=== PATIENT | female | born 1940 | race Caucasian/White ===

== ENCOUNTER 2017-09-29 13:00 | Inpatient (IN) ==
--- OUTSIDE RECORDS SUMMARY | 2017-09-29 16:21 | External Medical Summary | Encounter Summary ---
:1940 Author Organization [facility] Address [address] [place] [address] Phone Care Team Providers Name Role Phone Juma Mcgraw Referring Md Kalpana Isidro DO Primary Care Provider Reason for Referral Consult, Test & Treat Status Reason Specialty Diagnoses / Referred By Referred To Procedures Contact Contact New Request Specialty Cardiology Diagnoses Aortic valve stenosis, etiology of cardiac valve disease unspecified Juma Mcgraw Services Cassia Required [address] [place] [address] Reason for Visit Reason Comments Navigation Assessment /MS surgical evaluation Encounter Details Date Type Department Care Team Description 09/08/2017 Telephone [facility] Cardiology Janet Rinaldi Assessment [address] (/MS surgical Dennys G600 evaluation) [place] [address] Social History Tobacco Use Types Packs/Day Years Used Date Never Smoker Smokeless Tobacco: Never Used Alcohol Use Drinks/Week oz/Week Comments Yes Rare occasion Sex Assigned at Date Recorded Not on file as of this encounter Miscellaneous Notes Telephone Encounter - Vielka Rinaldi RN - 09/08/2017 2:12 PM POLYMERIZATION HELPER Formatting of this note may be different from the original. Cardiac Navigation Intake Assessment Document Patient Name: Tess Ramesh : 1940 Insurance: Payor: MEDICARE / Plan: MEDICARE PART A AND B / Product Type: Medicare / Primary contact for patient: Nicho Ramesh () [phone] Appointment Info:Future Appointments Date Time Provider Department Center 09/21/2017 11:30 AM [facility] Diagnosis & Reason for Visit: 2nd opinion, Aortic stenosis & mitral stenosis evaluation Physician Info: Referring Physician(Eye Glass Frame Polisher): Jaya Mcgraw MD Contact Name & Number: [phone] PCP: Kalpana Isidro Do Location of Films: Cath- [facility] DAISY- [place] Echo- Patient bringing disc History of Present Illness: 05/31/17 Echo Aortic valve: Mean Gradiant: 34 mmHg Valve Area: 1.51 cm2 Peak Velocity: 3.99 m/s Mitral Valve: Moderate annular calcification, mild to moderate regurgitation, up to moderate stenosis Tricuspid valve: mild regurgitation EF: 65% Diastolic Function: Grade 1 diastolic Add'l results per report 06/23/17 DAISY -Left atrial enlargement -Marked concentric LVH involving the septum -Subaortic valvular obstruction as manifested by turbulent flow and obliteration of the cavity at that level -Calcific severe aortic valve stenosis -Moderate calcified mitral stenosis -Mild to moderate mitral regurgitation -Mild aortic regurgitation -Normal EF 06/23/17 Cath -Normal coronary calcification -Severe aortic stenosis -Hyperdynamic LV, EF: 80% with obliteration of LV cavity size which is small caused by severe LVH -Moderate to severe mitral stenosis Add'l results per report 07/01/[address] Henriquez (CTS surgeon) Refer for TAVR evaluation due to surgical risk 07/13/[address] Lock and Ana María Segovia APRN (Valve clinic) If mitral stenosis not severe, will plan for TAVR If mitral stenosis is severe will refer back to Dr. Henriquez 07/23/17 Dobutamine Stress test -Stress ECG normal -At 20 mcg/kg/min the test shows severe aortic and mitral stenosis 07/29/[address] Henriquez (CTS surgeon) -High risk for AV dissociation with mitral valve replacement. Will continue medical treatment 09/02/[address] Lucien VELOZ Plan: Referral for 2nd opinion Medical history(Pertinent to valve workup) : Breast cancer (Masectomy only), Rheumatoid arthritis Surgery/Procedure history (Pertinent to valve workup) : Echo (results above), Cath, (results above),DAISY (results above), Dobutamine echo (results above) Reported heart failure symptoms: No current symptoms NEEDS Assessment: Social Work/Financial: No need identified Physical: Independent Communication: No needs identified Reviewed records with Mare Cunha APRN and Dr. Resendiz Plan: Office visit Comments: Spoke to Mrs. Ramesh. Updated with current plan. Updated with appointment information. in this encounter Plan of Treatment Scheduled Referrals Name Priority Associated Diagnoses Order Schedule AMB REFERRAL TO CARDIOVASCULAR Routine Aortic valve stenosis, Ordered: 09/08 SURGERY etiology of cardiac valve disease unspecified as of this encounter Visit Diagnoses Diagnosis Aortic valve stenosis, etiology of cardiac valve disease unspecified - Primary Mitral valve stenosis, unspecified etiology
--- OUTSIDE RECORDS SUMMARY | 2017-09-29 16:21 | External Medical Summary | Clinical Summary ---
:1940 Author Organization [facility] Address [address] [place] [address] Phone Care Team Providers Name Role Phone Juma Mcgraw Md Kalpana Isidro DO Primary Care Provider Source Comments Some departments are not documenting in the electronic medical record. If you do not see the information that you expected, contact Release of Information in the Health Information Management department at [phone] for further assistance in locating additional records.[facility] Allergies No Known Allergies Current Medications Prescription Sig. Disp. Refills Start Date End Date Status METOPROLOL/HYDROCHLOROTHI Take 1 tablet by Active AZIDE (METOPROLOL mouth daily. TA-HYDROCHLOROTHIAZ PO) Metoprolol 25mg-Hydrchlorothia zide 12.5mg aspirin EC 81 mg tablet Take 81 mg by mouth Active daily. Take with food. CALCIUM CARBONATE/VITAMIN Take 1 tablet by Active D3 (CALCIUM + D PO) mouth three times daily. cyclobenzaprine Take 10 mg by mouth Active (FLEXERIL) 10 mg tablet daily. MULTIVIT-MINERALS/FERROUS Take 1 tablet by Active FUM (MULTI VITAMIN PO) mouth daily. triamterene-hydrochloroth Take 1 tablet by Active iazide (MAXZIDE) 37.5-25 mouth every mg tablet morning. anastrozole (ARIMIDEX) 1 Take 1 mg by mouth Active mg tablet daily. traMADol (ULTRAM) 50 mg Take 50 mg by mouth Active tablet every 4-6 hours as needed for Pain. atorvastatin (LIPITOR) 40 Take 40 mg by mouth Active mg tablet daily. Active Problems Problem Noted Date Mitral stenosis Aortic stenosis Breast cancer (HCC) Pulmonary histoplasmosis (HCC) Obesity HTN (hypertension) Dyslipidemia Rheumatoid arthritis (HCC) S/P mastectomy, right Encounters Date Type Specialty Care Team Description 09/21/2017 Office Visit Cardiothoracic Surgery Martín, Mitral valve stenosis, unspecified etiology (Primary Dx); Brandon Whaley MD Aortic valve stenosis, etiology of cardiac valve disease unspecified; Malignant neoplasm of right female breast, unspecified estrogen receptor status, unspecified site of breast (HCC); Pulmonary histoplasmosis (HCC); Class 1 obesity due to excess calories with body mass index (BMI) of 34.0 to 34.9 in adult, unspecified whether serious comorbidity present 09/08/2017 Telephone Cardiology Gentry, Janet Assessment [address] (/MS surgical evaluation) from Last 3 Months Family History Medical History Relation Name Comments Heart Attack Father Stroke Mother Relation Name Status Comments Father (Age 60) Mother (Age 67) Social History Tobacco Use Types Packs/Day Years Used Date Never Smoker Smokeless Tobacco: Never Used Alcohol Use Drinks/Week oz/Week Comments No Rare occasion Sex Assigned at Date Recorded Not on file Last Filed Vital Signs Vital Sign Reading Time Taken Blood Pressure 122/82 09/21/2017 10:40 AM GANG SAWYER Pulse 63 09/21/2017 10:40 AM GANG SAWYER Temperature - - Respiratory Rate - - Oxygen Saturation 92% 09/21/2017 10:40 AM GANG SAWYER Inhaled Oxygen Concentration - - Weight 91 kg (200 lb 11.2 oz) 09/21/2017 10:40 AM GANG SAWYER Height 162.6 cm (5' 4") 09/21/2017 10:40 AM GANG SAWYER Body Mass Index 34.45 09/21/2017 10:40 AM GANG SAWYER Plan of Treatment Health Maintenance Due Date Last Done Comments PHYSICAL (COMPREHENSIVE) EXAM 1945 PERTUSSIS VACCINE 1949 TETANUS VACCINE 1955 SHINGLES VACCINE 1998 OSTEOPOROSIS SCREENING 2003 PREVNAR/PNEUMOVAX (#1) 2003 INFLUENZA VACCINE 03/16/2017
--- OUTSIDE RECORDS SUMMARY | 2017-09-29 16:21 | External Medical Summary | Encounter Summary ---
:1940 Author Organization [facility] Address [address] [place] [address] Phone Care Team Providers Name Role Phone Juma Mcgraw Referring Md Kalpana Isidro DO Primary Care Provider Reason for Visit Reason Comments Cardiac Eval /MS eval New Patient ref Dr Jaya Mcgraw Consult, Test & Treat Status Reason Specialty Diagnoses / Referred By Referred To Procedures Contact Contact New Request Specialty Cardiology Diagnoses Aortic valve stenosis, etiology of cardiac valve disease unspecified Juma Mcgraw Required [address] [place] [address] Encounter Details Date Type Department Care Team Description 09/21/2017 Office Visit [facility], Mitral valve stenosis, unspecified etiology (Primary Dx); & Cardiovascular Brandon Whaley MD Aortic valve stenosis, etiology of cardiac valve disease unspecified; [facility] [address] Malignant neoplasm of right female breast, unspecified estrogen receptor status, unspecified site of breast (HCC); [address] [place] [address] Pulmonary histoplasmosis (HCC); [place] [address] [place] Class 1 obesity due to excess calories with body mass index ( BMI) of 34.0 to 34.9 in adult, unspecified whether serious comorbidity present [phone] [address] [phone] Social History Tobacco Use Types Packs/Day Years Used Date Never Smoker Smokeless Tobacco: Never Used Alcohol Use Drinks/Week oz/Week Comments No Rare occasion Sex Assigned at Date Recorded Not on file as of this encounter Last Filed Vital Signs Vital Sign Reading Time Taken Blood Pressure 122/82 09/21/2017 10:40 AM EMBEDDED DEVELOPER Pulse 63 09/21/2017 10:40 AM EMBEDDED DEVELOPER Temperature - - Respiratory Rate - - Oxygen Saturation 92% 09/21/2017 10:40 AM EMBEDDED DEVELOPER Inhaled Oxygen Concentration - - Weight 91 kg (200 lb 11.2 oz) 09/21/2017 10:40 AM EMBEDDED DEVELOPER Height 162.6 cm (5' 4") 09/21/2017 10:40 AM EMBEDDED DEVELOPER Body Mass Index 34.45 09/21/2017 10:40 AM EMBEDDED DEVELOPER in this encounter Progress Notes Brandon Resendiz MD - 09/21/2017 11:30 AM CSTFormatting of this note may be different from the original. Date of Service: 09/21/2017 Subjective: Tess Ramesh is a 77 y.o. female. History of Present Illness We had the pleasure of seeing your patient, Tess Ramesh. As you know Tess Ramesh is a 77 y.o. female who you have been following for a long history of cardiac murmur. She had a recent echocardiogram in May of this year that showed a worsening aortic valve stenosis as well as significant mitral valve stenosis. She is here for a second surgical opinion regarding aortic and mitral valve replacement. Her history is significant for breast cancer status post right mastectomy approximately 1year ago and currently in remission. She also has a history of histoplasmosis lung infection approximately 5 years ago that was treated. She has chronic active arthritis, hypertension, hyperlipidemia, obesity, acute on chronic heart failure with preserved EF NYHA class II-III. As part of your workup she had an echocardiogram in May 2017 in [place], [place] that showed grade1 diastolic dysfunction and normal EF of 65%, moderate LV hypertrophy, mild LVOT obstruction, moderate to severe left atrial enlargement, moderate mitral annular calcification, mild to moderate mitral valve regurgitation with moderate mitral valve stenosis, moderate to severe aortic valve stenosis, and mild tricuspid valve regurgitation. Her mean aortic valve gradient was 35 mmHg with a valve area of 1.41 cm and a peak velocity of 3.99 m/s. Her mitral valve area was 1.9 cm. Of note she did have a normal size aortic root. On 06/23/2017 in [facility] she had a DAISY performed that showed an enlarged left atrium, concentric LVH, a particularly thick septum seeming to protrude into the subvalvular area causing obliteration, normal EF, moderate calcification of the aortic valve, valve area measuring 0.7 cm, mitral valve had heavy calcification of the posterior annulus extending to the posterior leaflet which appeared predominantly fixed, a thickened anterior leaflet was mildly calcified and sclerotic and appeared tethered consistent with mitral stenosis, normal tricuspid valve structure and excursion. That same day she had a heart catheterization that showed no significant coronary artery disease. A couple weeks later she had a carotid duplex study that was negative for occlusive disease. In July of this year she did have a dobutamine echo at [facility] that showed normal functional capacity with no chest pain during the stress with no stress arrhythmias or conduction abnormalities the EF was again 55-65% the mean aortic valve gradient was 45 mmHg the mean mitral valve gradient was 11.06 mmHg at peak stress. She was evaluated [place] surgeon Dr. Henriquez who discussed surgical options with her. The primary concern with surgical intervention was for heavily calcified mitral valve and she was thoughtto be at high risk of A-V dissociation with mitral valve replacement. Because of this she was referred to [facility] for possible TAVR intervention on her aortic valve. During that consultation the discussed again the uncertainty of her mitral valve stenosis. We felt that if she did not ultimately have severe mitral stenosis they would plan for a TAVR operation. However if she does have significant mitral stenosis recommendations would be to send her back to Dr. Henriquez for further surgical evaluation. She is here today for a second surgical opinion regarding her aortic and mitral valves. Overall her symptoms have included worsening shortness of breath and fatigue in general especially with activity that she feels has gradually worsened over the last 3 years. She does note some orthostatic dizziness and is always careful with this. She denies any chest pain, palpitations, syncope, orthopnea, paroxysmal nocturnal dyspnea, lower extremity edema, chills, fever, myalgias, productive cough and sweats. She denies any history of heart attack, stroke, mini stroke, seizures, blood clots, or blood clotting disorders. As noted above she has had a prior right mastectomy without reconstruction and both knees replaced. She did have a total abdominal hysterectomy after a very large benign mass was removed. This was all reviewed today by Dr. Brandon Resendiz and was discussed at length with Tess Ramesh. Review of Systems Constitution: Positive for malaise/fatigue. HENT: Negative. Eyes: Negative. Cardiovascular: Positive for dyspnea on exertion. Respiratory: Negative. Endocrine: Negative. Hematologic/Lymphatic: Negative. Skin: Negative. Musculoskeletal: Positive for arthritis and joint pain. Gastrointestinal: Negative. Genitourinary: Negative. Neurological: Positive for loss of balance. Psychiatric/Behavioral: Negative. Allergic/Immunologic: Negative. Past Medical History: Diagnosis Date Aortic stenosis Breast cancer (HCC) Dyslipidemia HTN (hypertension) Mitral stenosis Obesity Pulmonary histoplasmosis (HCC) Rheumatoid arthritis (HCC) S/P mastectomy, right Past Surgical History: Procedure Laterality Date HEART CATHETERIZATION 06/23/2017 CHOLECYSTECTOMY COLONOSCOPY KNEE ARTHROSCOPY KNEE REPLACEMENT Bilateral MASTECTOMY Right DESTINY AND BSO Social History Social History Marital status: Unknown Spouse name: N/A Number of children: N/A Years of education: N/A Social History Main Topics Smoking status: Never Smoker Smokeless tobacco: Never Used Alcohol use No Comment: Rare occasion Drug use: No Sexual activity: Not on file Other Topics Concern Not on file Social History Narrative No narrative on file Family History Problem Relation Age of Onset Stroke Mother Heart Attack Father Objective: anastrozole (ARIMIDEX) 1 mg tablet Take 1 mg by mouth daily. aspirin EC 81 mg tablet Take 81 mg by mouth daily. Take with food. atorvastatin (LIPITOR) 40 mg tablet Take 40 mg by mouth daily. CALCIUM CARBONATE/VITAMIN D3 (CALCIUM + D PO) Take 1 tablet by mouth three times daily. cyclobenzaprine (FLEXERIL) 10 mg tablet Take 10 mg by mouth daily. METOPROLOL/HYDROCHLOROTHIAZIDE (METOPROLOL TA-HYDROCHLOROTHIAZ PO) Take 1 tablet by mouth daily.Metoprolol 25mg-Hydrchlorothiazide 12.5mg MULTIVIT-MINERALS/FERROUS FUM (MULTI VITAMIN PO) Take 1 tablet by mouth daily. traMADol (ULTRAM) 50 mg tablet Take 50 mg by mouth every 4-6 hours as needed for Pain. triamterene-hydrochlorothiazide (MAXZIDE) 37.5-25 mg tablet Take 1 tablet by mouth every morning. Vitals: 09/21/17 1040 BP: 122/82 Pulse: 63 SpO2: 92% Weight: 91 kg (200 lb 11.2 oz) Height: 1.626 m (5' 4") Body mass index is 34.45 kg/m. Physical Exam Constitutional: She is oriented to person, place, and time. She appears well- developed and well-nourished. obese HENT: Head: Normocephalic. Cardiovascular: Normal rate and regular rhythm. Murmur (3-4/6 systolic ) heard. Pulmonary/Chest: Effort normal and breath sounds normal. Abdominal: Soft. Bowel sounds are normal. Musculoskeletal: Normal range of motion. She exhibits no edema. Compression sock on right arm for lymphedema Neurological: She is alert and oriented to person, place, and time. Skin: Skin is warm and dry. Psychiatric: She has a normal mood and affect. Her behavior is normal. Judgment and thought content normal. Preliminary STS today: Procedure: AV Replacement Risk of Mortality: 2.883% Morbidity or Mortality: 14.037% Long Length of Stay: 5.826% Short Length of Stay: 34.264% Permanent Stroke: 1.971% Prolonged Ventilation: 9.352% DSW Infection: 0.305% Renal Failure: 3.215% Reoperation: 5.906% HAS-BLED:1 Assessment: 1. Mitral valve stenosis, unspecified etiology 2. Aortic valve stenosis, etiology of cardiac valve disease unspecified 3. Malignant neoplasm of right female breast, unspecified estrogen receptor status, unspecified siteof breast (HCC) 4. Pulmonary histoplasmosis (HCC) 5. Class 1 obesity due to excess calories with body mass index (BMI) of 34.0 to 34.9 in adult, unspecified whether serious comorbidity present 6. Hypertension, unspecified type 7. Dyslipidemia 8. Rheumatoid arthritis, involving unspecified site, unspecified rheumatoid factor presence (HCC) 9. S/P mastectomy, right After a long discussion about risks and benefits of surgical intervention of either valve, she decided she would like to wait and see how her symptoms develop and hold off on surgery for now. Lexi Lynn APRN [facility] 09/21/2017 11:49 AM Assessment and Plan: I had the pleasure of seeing Tess Ramesh in the office in consultation concerning her aortic stenosis. As you know, this 77-year-old female has had a known murmur and been followed for aortic stenosis. She has undergone an echocardiogram, which demonstrates preserved LV function. She has someLV hypertrophy. Her aortic valve is very heavily calcified with very restricted leaflet motion. Her valve area, however, is over 1.4 cm. Her gradient is approximately 35 mmHg. Also of note is the fact that her mitral valve apparatus is heavily calcified. She has very restricted leaflet motion. She has at least moderate, if not even severe mitral stenosis. She underwent a cardiac cath. This demonstrates normal coronaries, but more importantly demonstrates that her mitral apparatus is diffusely and heavily calcified. I had a long discussion today in the office with she and her family. She states that her symptoms are primarily fatigue, which is actually very mild. She states her daily activities are not limited.She denies any syncopal episodes. She has had no chest pain. She said she sleeps without any difficulties. I am concerned that given the amount of mitral involvement that she would more likely benefit from aortic and mitral valve replacement. If, in fact, she has severe mitral stenosis and aortic valve replacement, we will probably not be of significant benefit to her, especially given the fact that her aortic valve area is actually reasonable at this time. With open mitral valve replacement, I think her risks are extremely high, especially for an atrioventricular disruption given AL at the amount of mitral annular calcification. I have reviewed this in detail today with she and her family. They have had a similar discussion with the surgeon in their home town. I would agree with his assessment that her surgical risks are high. Given these findings, and given the fact she remains relatively asymptomatic, she would like to continue with medical therapy, which I think is reasonable. I have told him I will be happy to follow up with her again if she would like to return. Otherwise, we would continue medical therapy. 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
--- OUTSIDE RECORDS SUMMARY | 2017-09-29 16:21 | External Medical Summary | Continuity of Care Document ---
:1940 Author Organization [facility] Care Team Providers Name Role Phone [employer] Unavailable Unavailable Encounters Location Location Encounter Encounter Reason Attending ADM DC Status Source Details Type Number For Provider Date Date Visit O 09/21 Active The /2017 [facility] OUTPATIENT [id number] LUPILLO 09/21 Active The [facility]
--- OUTSIDE RECORDS SUMMARY | 2017-09-29 16:22 | External Medical Summary ---
:1940 Author Organization [facility] Address [address] [place] [address] Care Team Providers Name Role Phone REBECA Segovia, VIKASH, Ana María Unavailable Unavailable PROBLEMS Type Condition ICD9-CM Code GGL39-ME Code Onset Condition SNOMED Code Dates Status Problem Dyslipidemia E78.5 Active 880297079 Problem Aortic valve I35.0 Active 13050634 stenosis, etiology of cardiac valve disease unspecified Problem Mitral valve I05.0 Active 32987893 stenosis, unspecified etiology Problem Obesity, E66.9 Active 231727894 unspecified classification, unspecified obesity type, unspecified whether serious comorbidity present Problem Rheumatoid M06.9 Active 69997007 arthritis, involving unspecified site, unspecified rheumatoid factor presence Problem (HFpEF) heart I50.30 Active 01896744 failure with preserved ejection fraction Problem Hypertension, I10 Active 50354412 unspecified type ALLERGIES No Known Allergies ENCOUNTERS Encounter Location Date Diagnosis [facility] [address], Aortic valve stenosis, [facility] [place], [place] [id number] etiology of cardiac valve disease unspecified I35.0 ; Mitral valve stenosis, unspecified etiology I05.0 ; (HFpEF) heart failure with preserved ejection fraction I50.30 ; Hypertension, unspecified type I10 ; Obesity, unspecified classification, unspecified obesity type, unspecified whether serious comorbidity present E66.9 ; Rheumatoid arthritis, involving unspecified site, unspecified rheumatoid factor presence M06.9 ; Dyslipidemia E78.5 and Urinary tract infection without hematuria, site unspecified N39.0 IMMUNIZATIONS No Known Immunizations SOCIAL HISTORY Never Assessed 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 TAVR CONSULT FOR DR SULLY CAMPOS PLAN OF CARE VITAL SIGNS Temperature 97.4 degrees Fahrenheit 2017-07-13 Weight 202 lbs 2017-07-13 Height 65 in 2017-07-13 BMI 33.61 kg/m2 2017-07-13 Heart Rate 66 /min 2017-07-13 Blood pressure systolic 141 mm Hg 2017-07-13 Blood pressure diastolic 71 L mm Hg 2017-07-13 MEDICATIONS Medication Instructions Dosage Frequency Start End Duration Status Date Date Vitamin B Complex - Active Atorvastatin Orally Once a 1 tablet 24h Active Calcium 40 MG day Nexium 20 MG Orally Once a 1 capsule 24h Active day Calcium + D Active Metoprolol Tartrate Orally Twice a 1 tablet 12h Active 25 MG day with food Anastrozole 1 MG Orally Once a 1 tablet 24h Active day Multivitamin Adult Active - Triamterene-HCTZ Orally Once a 1 tablet 24h Active 37.5-25 MG day in the morning Tramadol 50 mg orally every one tab Active 4-6 hours prn pain Aspirin Adult Low Orally Once a 1 tablet 24h Active Dose 81 MG day Cyclobenzaprine HCl Active RESULTS No Results PROCEDURES No Known procedures INSTRUCTIONS MEDICATIONS ADMINISTERED No Known Medications MEDICAL (GENERAL) HISTORY Type Description Date Medical History SEVERE AORTIC STENOSIS Medical History MODERATE MITRAL STENOSIS Medical History HTN Medical History DYSLIPIDEMIA Medical History RHEUMATOID ARTHRITIS Medical History BREAST CA Medical History OBESITY Surgical History HEART CATHETERIZATION- [facility] 06/23/2017 Surgical History MASTECTOMY Surgical History KNEE arthroscopy Surgical History Colonoscopy
[2017-09-29 17:49] VITALS: BMI 33.2
[2017-09-29] MEDS ORDERED: GUAIFENESIN 200MG TABLET PO PRN (17:59)
[2017-09-29] MEDS ORDERED: QUETIAPINE 25 MG TABLET PO PRN (17:59)
[2017-09-29] MEDS ORDERED: ENOXAPARIN 40 MG/0.4 ML INJECTION SQ SCH (18:00)
[2017-09-29] MEDS ORDERED: MAGNESIUM OXIDE 400 MG TABLET PO SCH (21:00)
[2017-09-29] MEDS: ATORVASTATIN 40 MG TABLET PO SCH (21:16)
[2017-09-29] MEDS: CYCLOBENZAPRINE 10 MG TABLET PO SCH (21:16)
[2017-09-30] MEDS: PANTOPRAZOLE 20 MG TABLET PO SCH (09:17)
[2017-09-30] MEDS: CLOPIDOGREL 75 MG TABLET PO SCH (09:18)
[2017-09-30] MEDS: CETIRIZINE 10 MG TABLET PO SCH (09:18)
[2017-09-30] MEDS: TRIAMTERENE/HCTZ 37.5 MG-25 MG TABLET PO SCH (09:18)
[2017-09-30] MEDS: ASPIRIN 81 MG CHEWABLE TABLET PO SCH (09:18)
--- NOTE | 2017-09-30 10:25 | IRU 24Hr Post Admit Eval ---
24 Hr Post Admission Physical - Relevant Changes Relevant Changes: No Reviewed: I have reviewed the patient's information and concur with the finding and results of the pre-admission screen. Certification: I certify the patient for rehabilitation. - Patient Condition (1) CVA (cerebral vascular accident) Status: Acute Qualifiers: CVA mechanism: embolism Precerebral and cerebral artery: middle cerebral artery Laterality of affected vessel: left Qualified Code(s): I63.412 - Cerebral infarction due to embolism of left middle cerebral artery Code(s): I63.9 - Cerebral infarction, unspecified Classification: Present on IRF Admission, IRF Tx That Should Address Diagnosis, Diagnosis Requiring Medical Follow Up (2) Hypertension Status: Chronic Qualifiers: Hypertension type: essential hypertension Qualified Code(s): I10 - Essential (primary) hypertension Code(s): I10 - Essential (primary) hypertension Classification: Present on IRF Admission, IRF Tx That Should Address Diagnosis, Diagnosis Requiring Medical Follow Up (3) Mitral stenosis Status: Chronic Qualifiers: Cardiac valve disease etiology: etiology unspecified Qualified Code(s): I05.0 - Rheumatic mitral stenosis Code(s): I05.0 - Rheumatic mitral stenosis Classification: Present on IRF Admission, IRF Tx That Should Address Diagnosis, Diagnosis Requiring Medical Follow Up - Prior Functional Status Lives With: Spouse Residence Type: Apartment/Private Home Assitive Devices: Straight Cane Prior Functional Status: Indep. at home or school, Indep. w/ all home ADL, Indep. w/ IADL - Current Functional Status Current Level of Function: Patient is currently independent with eating but requires supervision for grooming, moderate assistance for bathing, lower body dressing and bed/chair/ wheelchair transfers. She requires supervision for upper body dressing. She requires total assistance for walking with a rolling walker 40 feet. She does tend to have loss of balance episodes with her gait. She is currently a high fall risk. In addition there has been memory loss since the stroke. She did undergo a swallow study which was reportedly normal. She does have at least moderate cognitive linguistic deficits. She has left sided neglect visually. Failed Alternative Therapy: Arrived from Acute Care Patient Requirements: The patient requires oversight by rehabilitation physician to manage their rehabilitation treatment plan and multidisciplinary approach to care that can only be provided in an IRF and requires a multidisciplinary approach to care, provided by professional PTs, OTs, STs, dieticians, RTs, rehabilitation nurses and is not available in lesser levels of care. Limitations Req: Mobility Impairment, ADL Impairment, Cognitive Impairment Therapy: The patient is to receive therapy at least 5 days a week. Plan of Care Comment: Physical therapy: 75 minutes 3 days weekly, 90 minutes 2 days weekly. Occupational therapy: 75 minutes 3 days weekly, 90 minutes 2 days weekly. Speech therapy: 30 minutes 3 days weekly - Complications/Comorbidities Impact on Functional Outcomes: The patient's stroke and cognitive deficits may negatively impact her functional outcome. Barriers to Discharge: Weakness, Balance, Comprehension - Plan to Avoid Complications Plan to Avoid Complications: The patient cannot receive this care in a lesser intensive setting such as [facility] or Outpatient Therapy due to the patient requiring the following : This complex patient requires a multidisciplinary approach with PT, OT and speech therapy. She is at risk for further neurologic deficits. She requires close 24 hour rehabilitation nursing monitoring of her neurologic status as well as requiring telemetry to rule out arrhythmia as an etiology of her stroke. Because of her medical complexity and requirement for multidisciplinary approach, medical supervision is required as well .
--- NOTE | 2017-09-30 11:42 | Consult Note ---
Consult Information - Data of Consult Consult date: 09/30/17 Requesting Physician: Ubaldo Claire MD Primary Care Provider: Kalpana Isidro DO Family Provider: Kalpana Isidro DO - Consult Narrative Reason for consult: Medical management HTN, CVA History of present illness: Tess is a pleasant 77 yr old female who resides independently at home with her in [facility]. She has been under the primary care of Dr Kalpana Isidro. On 09/24/17 at 1802. She was on the phone with her daughter and was confused. arrived home shortly thereafter. She was complaining of a significant frontal headache along with memory loss and left facial drooping. EMS was contacted patient was noted to be dragging her left leg. She was hypertensive with blood pressure 200/107. At that time she was transported directly to [facility] and evaluated for acute CVA. She did receive TPA at 6 that evening. She was admitted and followed by Neurology and cardiology while at [facility]. On 09/29, patient underwent a ADISY under the care of Dr. Jaya Mcgraw. DAISY revealed the EF of 60-65% with aortic valve thickening with moderate calcification. Mitral valve with moderate regurgitation. An MRI of the brain was performed on 09/25 that did reveal a acute ischemic area of the left centrum semiovale, no mass effect or hemorrhagic transformation. Patient was stabilized and accepted to [facility] IRU for ongoing PT/ OT for strengthening. Past Medical History Patient Stated Medical History Acute CVA-09/24/17 (received TPA) Hypertension Hypercholesterolemia Aortic valvular disease with calcification GERD/gastritis Constipation History of headaches History of right breast cancer Surgical History: [id number]. BSO- 2011. Vaginal Hyst- 1989's. R mastectomy. Lymphnode removal-. Bilateral knee replacements. appendectomy. cholecystectomy Family History Updates: Mother-coronary artery disease, CVA, at age 67. Father- of an MT at age 60. Brother had MT at age 66 - Social History Smoking status: Never smoker Substance use type: does not use Alcohol intake frequency: does not drink Housing: house Household members: spouse Current residence: Apartment/Private Home Social history: Patient resides independently with her at home in [place], [place]. Primary care provider, Dr. Kalpana Isidro Provider Relations Rep, Dr. Mcgraw Review of Systems All systems PM: 10-point ROS was reviewed, no additional remarkable complaints except - EENMT Eyes: Present: blurry vision (left eye) - Psychiatric Psychiatric Comments: Emotional, "Frustrated" Medications Home Medications Medication Instructions Recorded Confirmed Type Lipitor (atorvastatin) 40 mg tablet 40 mg PO HS tab 06/18/17 09/29/17 History Lopressor (metoprolol tartrate) 50 25 mg PO BID 06/18/17 09/29/17 History mg tablet Nexium (Esomeprazole) 20 mg 20 mg PO ACB cap 06/18/17 09/29/17 History capsule,delayed release Acetaminophen [Tylenol] 650 mg PO PRN PRN 06/23/17 09/29/17 History Aspirin Chewable [ASA] 81 mg PO DAILY 09/29/17 09/29/17 History Cetirizine [Zyrtec] 1 tab PO DAILY 09/29/17 09/29/17 History Clopidogrel [Plavix] 1 tab PO DAILY 09/29/17 09/29/17 History Cyclobenzaprine [Flexeril] 1 tab PO HS 09/29/17 09/29/17 History Enoxaparin [Lovenox] 40 mg SQ Q24HR 09/29/17 09/29/17 History Guaifenesin [Mucinex] 200 mg PO Q6HPRN PRN 09/29/17 09/29/17 History Magnesium Oxide [Magox] 400 mg PO TID 09/29/17 09/29/17 History Quetiapine [Seroquel] 12.5 mg PO Q6HR PRN 09/29/17 09/29/17 History Triamterene/Hydrochlorothiazid 1 each PO DAILY 09/29/17 09/29/17 History [Maxzide 37.5 mg-25 mg Tablet] Allergies Allergy/AdvReac Type Severity Reaction Status Date / Time No Known Allergies Allergy Verified 09/29/17 18:14 Exam Vital Signs: Temperature 98.5 F 09/30/17 08:00 Pulse Rate 99 09/30/17 08:00 Respiratory Rate 18 09/30/17 08:00 Blood Pressure 142/92 H 09/30/17 08:00 Pulse Oximetry 91 09/30/17 08:00 Height/Weight/BMI: Height 1.64 m Weight 89.2 kg Body Mass Index 33.2 - Constitutional Present: no acute distress, well nourished, well developed - Routine HEENT Exam Eye: Present: EOMI ENT: Present: mucous membranes moist, dentition normal - Routine Respiratory Exam Present: CTA bilaterally. Absent: wheezes - Routine Cardiovascular Exam Present: RRR, S1, S2, murmur - Routine Abdominal Exam Present: soft, normoactive bowel sounds, non distended. Absent: tenderness - Routine Extremities Exam Present: no edema - Routine Skin Exam Present: intact, dry, warm - Routine Neurological Exam Present: alert, oriented X3, CN II-XII intact, moving all extremities - Routine Psychiatric Exam Present: cooperative, depressed Comments: emotional during examination Results - Labs CBC & Chem 7: 09/30/17 04:55 09/30/17 04:56 Assessment and Plan (1) CVA (cerebral vascular accident) Current visit: Yes Status: Acute Assessment and Plan: Impression Acute CVA- 09/24/17 Received TPA Left eye blurriness Aortic valve calcification HTN Hypercholesterolemia GERD Hx Breast Cancer Plan Agree with admission to IRU under the care of Dr. Claire for ongoing therapy and strengthening. Patient is quite emotional during examination and reports that she is frustrated with the acute events. It is her hope to return home independently with her . Discussed potential depression and offered initiation of anti-depression medication if needed. Monitor blood pressure, continue on Maxide and Lopressor Protonix chronically for GI protection. Given history of GERD and gastritis Continue on ASA ,Plavix, and Lipitor given recent CVA Urged patient to utilize her routine glasses. She does complain of some left eye blurriness, however, has not been using her normal bifocals. Lovenox SQ daily for PPX Will need to monitor patient for any worsening signs of depression or anxiety. Patient may benefit from initiation of an antidepressant medication given significant life change. Seroquel is available as needed. Will follow routine labs. Encourage work with PT and OT for ongoing strengthening Hospitalist service will continue to follow patient medically manage her existing comorbidities during her stay in the rehabilitation unit. At time of discharge her medical care will return to primary care provider, Dr. Isidro DVT Prophylaxis: SCD's, Lovenox GI Prophylaxis: Protonix Resuscitation Status: Do Not Resuscitate - Time spent with patient Time with patient PN: 35 minutes - Physician Narrative Physician: Adrian Herbert MD Narrative: Date: 09/30/17 Time: 2039 Have independently interviewed and examined pt. Chart reviewed. Case discussed with my [employer]. Above care plan developed with my supervision; agree with above. Admitted to IRU for restorative care following CVA. Taken to [facility] with onset of symptoms. Received tPA. Neurologically, feels has made significant improvement. Motor function doing well. Had good day of therapy today; tired from all the activities. Breathing well-not feeling SOA or congested. No chest pressure or pain. Appetite stable. No ab pain or discomfort. Bowels have been moving. Lungs: clear bilaterally CV: regular with murmur AB: soft nt/nd +BS MSE: awake alert appropriate Plan: Agree with admission of pt to IRU to maximize functional status. Encourage participation with therapy to gain strength. Continue medications initiated due to stroke. Monitor blood pressure. Medically stable for IRU floor activities. Hospital Course Summary Disclaimer: The visit summary below is not to be considered part of the above Progress Note. Hospital Course: Impression Acute CVA- 09/24/17 Received TPA Left eye blurriness Aortic valve calcification HTN Hypercholesterolemia GERD Hx Breast Cancer Plan Agree with admission to IRU under the care of Dr. Claire for ongoing therapy and strengthening. Patient is quite emotional during examination and reports that she is frustrated with the acute events. It is her hope to return home independently with her . Discussed potential depression and offered initiation of anti-depression medication if needed. Monitor blood pressure, continue on Maxide and Lopressor Protonix chronically for GI protection. Given history of GERD and gastritis Continue on ASA ,Plavix, and Lipitor given recent CVA Urged patient to utilize her routine glasses. She does complain of some left eye blurriness, however, has not been using her normal bifocals. Lovenox SQ daily for PPX Will need to monitor patient for any worsening signs of depression or anxiety. Patient may benefit from initiation of an antidepressant medication given significant life change. Seroquel is available as needed. Will follow routine labs. Encourage work with PT and OT for ongoing strengthening Hospitalist service will continue to follow patient medically manage her existing comorbidities during her stay in the rehabilitation unit. At time of discharge her medical care will return to primary care provider, Dr. Iisdro
--- NOTE | 2017-09-30 14:19 | IRU History & Physical Report ---
HPI IRU Date: Date: 09/30/17 Time: 1402 Chief complaint: I had a stroke HPI: Ms. Ramesh is a very pleasant 77-year-old female referred by Dr. Zoey Rodriguez at [facility]. Her primary care physician is Dr. Kalpana Escobar. History is obtained predominantly from the patient but secondarily from extensive records which are reviewed. The patient lives with her in [facility]. Patient states that she recalls sitting at her dining room table talking to her daughter on the phone who lives out of state. Her daughter asked to speak to the patient's because the patient was not making any sense. He had been gone for about an hour but arrived shortly thereafter. Transfer records indicate that she was very confused at that point. She was noted to have left facial droop according to transfer information. EMS was called. When they arrived, they noted that she had a left facial droop and was dragging her left leg. Blood pressure reported by EMS was 200/107 and a blood sugar was 137. She did complain of a significant frontal headache and showed evidence of memory loss. She was transported directly to [facility] and received TPA at 2056 hrs. on the evening of 09/24/2017. Onset of symptoms was around 1800 hrs. that evening. It was noted that she had fairly good resolution of her left face droop prior to administering TPA. However she continued to have significant confusion which was new for her. Consultation with Dr. Alcaraz was obtained and it was determined to go ahead with TPA. CT angiogram of both head and neck were negative for retrievable clot. MRI obtained on the morning of 09/25/2017 showed a small focus of acute ischemia in the left centrum semiovale and a possible small focus of acute ischemia in the left posterior cerebellar hemisphere. No mass effect and no hemorrhage was identified. Transthoracic echocardiogram performed on the brake 2017 demonstrated normal ejection fraction at 60-65% without regional wall motion abnormalities. Aortic valve showed moderate to severe aortic stenosis. Mitral valve showed moderate stenosis and moderate regurgitation. No pericardial effusion was seen. CT angiogram of the neck on 09/24/2017 showed no significant stenosis nor aneurysm. She was also seen by Dr. Jaya Mcgraw, cardiology. He recommended a loop recorder as well as DAISY. DAISY was performed on 09/29/2017 and this was negative for left atrial aneurysm. She apparently has a long history of valvular heart disease involving both the mitral and aortic valves. There is been a question of whether to do a TAVR procedure on her but thus far surgery is not recommended. The patient denies chest pains or palpitations. To my knowledge she does not have history of known coronary disease. She denies shortness of breath. She does note that her left leg remains somewhat weak. She denies any further headaches and denies difficulty swallowing. She does have a mild cough but no sputum. She does have some left-sided visual neglect out of the left eye only. She has developed significant functional deficits and it was felt that acute inpatient rehabilitation would be appropriate for this patient. She lives in [facility] with her . They have 1 step to get up into their home. She does not use an assistive device at home prior to this current event. Prior level of functioning is as follows: She was modified independent for eating, independent for grooming, bathing, upper and lower body dressing as well as toileting. She was modified independent for bed/chair/wheelchair transfers and toilet transfers. She was independent for walking. Current level of functioning is as follows: She is independent for eating but requires supervision for grooming, moderate assistance for bathing and lower body dressing. Requires supervision for upper body dressing. She requires moderate assistance for bed/chair/wheelchair transfers and total assistance for walking with a rolling walker 40 feet. Patient does demonstrate loss of balance with gait. In addition she has had noticeable memory issues since the stroke according to the family. Patient requires speech therapy as well for moderate linguistic/cognitive deficits. The following medical conditions are noted and require active monitoring and/or management: 1. Acute CVAs involving left centrum semiovale and possible ischemia to left posterior cerebellar hemisphere 2. Hyperglycemia: Patient has had some elevated blood sugars since the stroke although does not have an official diagnosis of diabetes mellitus. 3. Hypertension 4. Valvular heart disease characterized by moderate to severe aortic stenosis, moderate mitral stenosis with regurgitation but normal ejection fraction The following therapies will be needed: 1. Physical therapy: for transfers and ambulation and stairs. 2. Occupational therapy: for ADL's and transfers. 3. Medical management: for the above conditions. 4. 24 hour Rehabilitation Nursing to monitor and address the following: She requires close monitoring of her neurologic status as well as blood sugars. Also requires monitoring of her blood pressure. 5. Speech therapy: For cognitive/linguistic training and memory assessment. [facility] Patient Stated Medical History Transient Ischemic Attacks ( Yes TIA) Hypertension Yes Myocardial Infarction Yes Valvular Heart Disease Yes Bronchitis Yes Pneumonia Yes: 5 years ago Constipation No Gastroesophageal Reflux Yes Disease Hx Incontinence Yes Other Musculoskeletal Yes: RA Other Reproductive Yes: mass in uterus Clinic Medical History (Last Updated 06/18/17 @ 16:09 by Mikhail Ibarra MA) Arthritis (Acute Medical) Breast cancer (Acute Medical) HTN (hypertension) (Acute Medical) High cholesterol (Acute Medical) Insomnia (Acute Medical) Surgical History: [id number]. [place]Eachern. BSO- 2011. Vaginal Hyst- 1989's. R mastectomy. Lymphnode removal-. Bilateral knee replacements. appendectomy. cholecystectomy Family History: Family History (Last Updated 06/18/17 @ 16:11 by Mikhail Ibarra MA) Father Cardiac abnormality Mother Stroke Family History Updates: Patient's father of heart attack age 60. Mother of stroke age 67. One brother is with diabetes and heart attack. Another brother is living. Another sister who is older than the patient has Alzheimer's dementia. - Social History Smoking status: Never smoker Substance use type: does not use Alcohol intake: never Alcohol intake frequency: does not drink Current occupational status: retired Current residence: Apartment/Private Home Social history: Patient resides independently with her at home in [place], [place]. Primary care provider, Dr. Kalpana Isidro Carcass Splitter, Dr. 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 She worked for [employer] for about 29 years she states. Review of Systems - Constitutional Constitutional: Present: fatigue, weakness. Absent: anorexia, chills, fever(s) , headache(s), lethargy, malaise, night sweats, weight gain, weight loss - EENMT Eyes: Present: change in vision (left sided neglect from left eye.). Absent: blurry vision, diplopia Mouth/Throat: Absent: changes in swallowing, painful swallowing, change in taste , bleeding gums, change in voice - Cardiovascular Cardiovascular: Absent: chest pain, palpitations, syncope, dyspnea on exertion, orthopnea, edema, cyanosis, heart murmur Rhythm: Present: regular rhythm Vascular: Absent: intermittent claudication, pedal edema, unilateral swelling - Respiratory Respiratory: Absent: cough, dyspnea, hemoptysis, dyspnea on exertion, wheezing, pain on inspiration, chest congestion, excessive phlegm production - Gastrointestinal Gastrointestinal: Absent: abdominal pain, change in bowel habits, constipation, diarrhea, dyspepsia, dysphagia, early satiety, hematochezia, melena, nausea, vomiting - Genitourinary Genitourinary: Present: urinary incontinence - Musculoskeletal Musculoskeletal: Absent: abnormal gait, arthralgias, back pain, joint swelling, limited range of motion, muscle weakness - Integumentary/Breasts Integumentary: Absent: alopecia, erythema, lesions, pruritus, rash, jaundice - Neurological Neurological: Present: abnormal gait, focal weakness, memory loss. Absent: abnormal movements, abnormal speech, confusion, convulsions, dizziness, frequent falls, headache(s), loss of vision, numbness, paresthesias, tremor(s) - Psychiatric Psychiatric: Absent: abnormal sleep pattern, anxiety, depression - Endocrine Endocrine: Absent: cold intolerance, flushing, heat intolerance, palpitations - Hematologic/Lymphatic Hematologic/Lymphatic: Absent: easy bleeding, easy bruising, lymphadenopathy - Allergic/Immunologic Allergic/Immunologic: Absent: urticaria Medications Home Medications Medication Instructions Recorded Confirmed Type Lipitor (atorvastatin) 40 mg tablet 40 mg PO HS tab 06/18/17 09/29/17 History Lopressor (metoprolol tartrate) 50 25 mg PO BID 06/18/17 09/29/17 History mg tablet Nexium (Esomeprazole) 20 mg 20 mg PO ACB cap 06/18/17 09/29/17 History capsule,delayed release Acetaminophen [Tylenol] 650 mg PO PRN PRN 06/23/17 09/29/17 History Aspirin Chewable [ASA] 81 mg PO DAILY 09/29/17 09/29/17 History Cetirizine [Zyrtec] 1 tab PO DAILY 09/29/17 09/29/17 History Clopidogrel [Plavix] 1 tab PO DAILY 09/29/17 09/29/17 History Cyclobenzaprine [Flexeril] 1 tab PO HS 09/29/17 09/29/17 History Enoxaparin [Lovenox] 40 mg SQ Q24HR 09/29/17 09/29/17 History Guaifenesin [Mucinex] 200 mg PO Q6HPRN PRN 09/29/17 09/29/17 History Magnesium Oxide [Magox] 400 mg PO TID 09/29/17 09/29/17 History Quetiapine [Seroquel] 12.5 mg PO Q6HR PRN 09/29/17 09/29/17 History Triamterene/Hydrochlorothiazid 1 each PO DAILY 09/29/17 09/29/17 History [Maxzide 37.5 mg-25 mg Tablet] Allergies Allergy/AdvReac Type Severity Reaction Status Date / Time No Known Allergies Allergy Verified 09/29/17 18:14 Results IRU - Labs Labs: I have reviewed extensive transfer records from outside. Exam Vital Signs: Temperature 98.5 F 09/30/17 08:00 Pulse Rate 82 09/30/17 08:01 Respiratory Rate 18 09/30/17 08:00 Blood Pressure 142/92 H 09/30/17 08:00 Pulse Oximetry 91 09/30/17 08:00 Height/Weight/BMI: Height 1.64 m Weight 89.2 kg Body Mass Index 33.2 - Constitutional Present: no acute distress, well nourished, well developed, average body habitus , obese, cooperative - Routine HEENT Exam Head: Present: normocephalic, atraumatic. Absent: cushingoid faces, abrasion, laceration, hematoma Eye: Present: EOMI, PERRL. Absent: conjunctival icterus, scleral injection, periorbital swelling, nystagmus ENT: Present: mucous membranes moist, oropharynx clear - Routine Neck Exam Present: supple, full ROM, trachea midline. Absent: lymphadenopathy, thyromegaly, tenderness, swelling - Routine Chest/Breast/Axilla Exam Chest wall: Absent: tenderness, mass Axillae: Absent: lymphadenopathy, mass - Routine Respiratory Exam Present: CTA bilaterally. Absent: accessory muscle use, decreased breath sounds , prolonged expiratory phase, rales, respiratory distress, rhonchi, stridor, wheezes, crackles, distant breath sounds - Routine Cardiovascular Exam Present: RRR, S1, S2, murmur (the patient has both systolic and diastolic murmurs. Systolic murmurs her second right interspace and left sternal border grade 2/6. Diastolic murmur is very faint along the left sternal border and apex.). Absent: gallop, S3, S4, click, irregular rhythm - Routine Abdominal Exam Present: soft, normoactive bowel sounds, non distended, non tender. Absent: rebound, guarding, firm, rigid, organomegaly, mass, hernia, wound - Routine Extremities Exam Present: no edema, non tender, pulses intact, normal capillary refill. Absent: cyanosis, clubbing - Routine Back/Spine/Pelvis Exam Back/Spine: Present: full ROM. Absent: scoliosis, kyphosis - Routine Skin Exam Present: intact, dry, warm. Absent: cyanosis, erythema, pallor, mottling, petechiae, urticaria, lesions, jaundice - Routine Neurological Exam Present: alert, oriented X3, CN II-XII intact, motor deficit (mild weakness of left lower extremity is noted.), moving all extremities, normal speech Visual field defect noted. Patient states left half of her visual field is not able to be seen out of her left eye only. Right eye apparently has both sites she states. - Routine Psychiatric Exam Present: normal affect, normal thought process, cooperative, good insight, good judgment. 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 She has had a negative workup to date of carotids and brain MRI as well as CT angiogram of the head and neck. DAISY was performed without evidence of source for embolus. She will be on telemetry here and ultimately may need a loop recorder. (2) Hypertension Qualifiers: Hypertension type: essential hypertension Qualified Code(s): I10 - Essential (primary) hypertension Current visit: Yes Status: Chronic Patient will be monitored carefully for her blood pressures to ensure avoidance of excessive elevation or hypotension. (3) Mitral stenosis Qualifiers: Cardiac valve disease etiology: etiology unspecified Qualified Code(s): I05.0 - Rheumatic mitral stenosis Current visit: Yes Status: Chronic Patient has both mitral valve stenosis and regurgitation. (4) Aortic stenosis Qualifiers: Cardiac valve disease etiology: etiology unspecified Qualified Code(s): I35.0 - Nonrheumatic aortic (valve) stenosis Current visit: Yes Status: Chronic According to transthoracic echocardiogram performed recently the patient has moderate to severe aortic stenosis. As such she would be at risk for hypotension and other complications from valvular heart disease. DVT Prophylaxis: SCD's, Lovenox Resuscitation Status: Do Not Resuscitate - Course Hospital Course: Ubaldo Claire MD: - Interventions to Obtain Goals PT Treatment Plan: Balance/Proprioception, Functional Activities, Gait Training , Patient/Family Education, Therapeutic Exercise OT Treatment Plan: ADL (Basic Care), Balance Training, IADL, Pt./Family Education, Ther. Exercise for ADL Goals Progress/Modifications: This patient has suffered one or 2 recent strokes. No embolic source has been identified at this time. She is at risk for further neurologic events, hypertension or hypotension as well as being a high fall risk. Because of her multiple medical problems the patient will be seen in a multidisciplinary fashion with PT, OT, speech therapy and medical supervision along with 24 rehabilitation nursing to monitor her neurologic and cardiac status.
[2017-09-30] MEDS: ENOXAPARIN 40 MG/0.4 ML INJECTION SQ SCH (20:03)
[2017-09-30] MEDS: ATORVASTATIN 40 MG TABLET PO SCH ×2 (20:04→21:05)
[2017-09-30] MEDS: CALCIUM CARBONATE 500 MG TABLET PO SCH (20:04)
[2017-09-30] MEDS: CYCLOBENZAPRINE 10 MG TABLET PO SCH (20:04)
[2017-10-01] MEDS: PANTOPRAZOLE 20 MG TABLET PO SCH (05:33)
[2017-10-01] MEDS: CALCIUM CARBONATE 500 MG TABLET PO SCH ×2 (09:20→20:09)
[2017-10-01] MEDS: TRIAMTERENE/HCTZ 37.5 MG-25 MG TABLET PO SCH (09:20)
[2017-10-01] MEDS: CETIRIZINE 10 MG TABLET PO SCH (09:34)
[2017-10-01] MEDS: ASPIRIN 81 MG CHEWABLE TABLET PO SCH (09:34)
[2017-10-01] MEDS: CLOPIDOGREL 75 MG TABLET PO SCH (09:35)
--- NOTE | 2017-10-01 10:27 | IRU Progress Note ---
- Subjective/Serverity of Illness Date: 10/01/17 Tess was evaluated in her room on inpatient rehabilitation. She is just getting started with therapy, including PT, OT and speech therapy. Speech therapy feels as though she is safe with swallowing regular liquids and food. Cognition is an issue and she will be assessed with RIPA assessment tool. Her daughter: Indicated that the patient was reporting some visual hallucinations with seeing things on the ceiling. I asked the patient about this directly today. She says that she is just unable to wear her glasses for the first time today because of some visual problems in the left eye related to her stroke. However she does admit to seeing "zuniga and things" "crawling" up the wall. In addition she does have some left visual field neglect. Last time she saw the zuniga crawling was yesterday. She says these were not bugs. Patient denies any chest pain or shortness of breath. Medical issues we are actively monitoring and/or managin. Acute CVAs involving left centrum semiovale and possible ischemia to left posterior cerebellar hemisphere: Patient has sustained several functional deficits including but not limited to her memory. Also has affected some visual changes as well. 2. Hyperglycemia: Patient has had some elevated blood sugars since the stroke although does not have an official diagnosis of diabetes mellitus: Blood sugar of 160 noted. We will continue to monitor the present time. 3. Hypertension: Her blood pressures are reasonably well controlled. We are also avoiding hypotension. 4. Valvular heart disease characterized by moderate to severe aortic stenosis, moderate mitral stenosis with regurgitation but normal ejection fraction: Currently appears to be asymptomatic in this regard. 5. Possible visual hallucinations: Etiology of her hallucinations is not clear. It is noted that she is on Seroquel. Whether these are new with the stroke is not clear to me. We will continue to monitor. Exam Vital Signs: Temperature 98.2 F 10/01/17 08:00 Pulse Rate 92 10/01/17 08:00 Respiratory Rate 15 10/01/17 08:00 Blood Pressure 130/95 H 10/01/17 08:00 Pulse Oximetry 97 10/01/17 08:00 Height/Weight/BMI: Height 1.64 m Weight 89.2 kg Body Mass Index 33.2 - Constitutional Present: no acute distress, well nourished, well developed, cooperative - Routine HEENT Exam Head: Present: normocephalic Eye: Present: EOMI, PERRL ENT: Present: mucous membranes moist, oropharynx clear - Routine Neck Exam Present: supple - Routine Respiratory Exam Present: CTA bilaterally. Absent: dyspnea, decreased breath sounds, wheezes, crackles - Routine Cardiovascular Exam Present: RRR, S1, S2, murmur (both systolic and diastolic murmurs noted as previously indicated.). Absent: S3, S4 - Routine Abdominal Exam Present: soft, normoactive bowel sounds, non distended. Absent: tenderness - Routine Extremities Exam Present: no edema. Absent: cyanosis, clubbing - Routine Skin Exam Present: dry, warm - Routine Neurological Exam Present: alert, oriented X3, CN II-XII intact, facial asymmetry (very slight suggestion of left face droop.), normal speech. Absent: vision grossly intact ( left vision neglect) I did reassess her strength today. She appears to have good strength bilaterally in the upper and lower extremities including fine motor movement at both hands. Speech is fluent. Does have evidence of memory loss and difficulty in this area. - Routine Psychiatric Exam Present: normal affect, visual hallucinations (please see above discussion.) Results IRU - Labs Labs: I have reviewed the chart data. IRU A/P (1) CVA (cerebral vascular accident) Qualifiers: CVA mechanism: embolism Precerebral and cerebral artery: middle cerebral artery Laterality of affected vessel: left Qualified Code(s): I63.412 - Cerebral infarction due to embolism of left middle cerebral artery Current visit: Yes Status: Acute She is getting settled into rehabilitation routine. She is cooperative with therapy. Memory loss appears to be an issue. (2) Hypertension Qualifiers: Hypertension type: essential hypertension Qualified Code(s): I10 - Essential (primary) hypertension Current visit: Yes Status: Chronic Her blood pressures are reasonably well controlled. (3) Mitral stenosis Qualifiers: Cardiac valve disease etiology: etiology unspecified Qualified Code(s): I05.0 - Rheumatic mitral stenosis Current visit: Yes Status: Chronic (4) Aortic stenosis Qualifiers: Cardiac valve disease etiology: etiology unspecified Qualified Code(s): I35.0 - Nonrheumatic aortic (valve) stenosis Current visit: Yes Status: Chronic No change in murmurs noted at this time. (5) Visual hallucinations Current visit: Yes Status: Acute It is not clear how long she has experienced visual hallucinations. Whether this is related to the recent stroke or not is not clear. She is on Seroquel as needed for "acute delirium." DVT Prophylaxis: SCD's, Lovenox Resuscitation Status: Do Not Resuscitate - Course Hospital Course: Ubaldo Claire MD: 10/01/17 10:35 Medically stable. Memory/cognition is an issue. Visual hallucinations noted as recently as yesterday. Getting settling into rehabilitation routine. - Interventions to Obtain Goals PT Treatment Plan: Balance/Proprioception, Functional Activities, Gait Training , Patient/Family Education, Therapeutic Exercise OT Treatment Plan: ADL (Basic Care), Balance Training, IADL, Pt./Family Education, Ther. Exercise for ADL Goals Progress/Modifications: Time spent with patient and on floor reviewing data and documentin min Medical decision-making: Patient's daughter notified us that the patient was having some visual hallucinations. This was confirmed with the patient today. Whether this is a new or old issue is not clear to me at this time but we will pursue further. In addition, cognition will be assessed by speech therapy. She is settling into rehabilitation routine. She denies any chest pain or shortness of breath. At this time does not have much in the way of muscle weakness on either side. Blood sugars borderline elevated we will monitor this. It is felt appropriate and safe to continue therapy at this time for both PT, OT as well as speech therapy. We will pursue the visual hallucinations if they continue. Please note that the patient's individual plan of care was developed and documented today, requiring review of therapy notes, medical conditions and anticipated functional recovery. This required additional medical decision making with regard to interaction of the patient's medical issues with the anticipated functional recovery. Please see separate document.
--- NOTE | 2017-10-01 13:54 | IRU Plan of Care ---
U Overall Plan of Care - Date Date: 10/01/17 - Patient Impairments (1) CVA (cerebral vascular accident) Code(s): I63.9 - Cerebral infarction, unspecified Status: Acute Classification: Present on IRF Admission, IRF Tx That Should Address Diagnosis, Diagnosis Requiring Medical Follow Up (2) Hypertension Code(s): I10 - Essential (primary) hypertension Status: Chronic Classification: Present on IRF Admission, IRF Tx That Should Address Diagnosis, Diagnosis Requiring Medical Follow Up (3) Mitral stenosis Code(s): I05.0 - Rheumatic mitral stenosis Status: Chronic Classification: Present on IRF Admission, IRF Tx That Should Address Diagnosis, Diagnosis Requiring Medical Follow Up (4) Aortic stenosis Code(s): I35.0 - Nonrheumatic aortic (valve) stenosis Status: Chronic Classification: Present on IRF Admission, Diagnosis Requiring Medical Follow Up (5) Visual hallucinations Code(s): R44.1 - Visual hallucinations Status: Acute Classification: Present on IRF Admission, IRF Tx That Should Address Diagnosis, Diagnosis Requiring Medical Follow Up - Relevant Changes Relevant Changes: No Reviewed: I have reviewed the patient's information and concur with the finding and results of the pre-admission screen. Certification: I certify the patient for rehabilitation. - Medical Prognosis Medical Prognosis: Good Vital Signs: Last Vital Signs Temp 98.2 F 10/01/17 08:00 Pulse 92 10/01/17 08:00 Resp 15 10/01/17 08:00 BP 130/95 H 10/01/17 08:00 Pulse Ox 97 10/01/17 08:00 - Anticipated Interventions Anticipated Interventions: The patient requires inpatient IRF care for PT, OT, and/or ST for residuals remaining from CVA's resulting in muscular weakness and strength deficits. An individualized overall plan of care has been developed after careful review of the patient's preadmission screening, post admission physician evaluation and assessments of all therapy disciplines and/or other pertinent clinicians involved in treating the patient. This indicates medical necessity and rehabilitation necessity have been established through a thorough review of all available medical information. Strength Deficits: Left Lower Extremity - Current Functional Status Failed Alternative Therapy: Arrived from Acute Care Patient Requires: The patient requires oversight by rehabilitation physician to manage their rehabilitation treatment plan and multidisciplinary approach to care that can only be provided in an IRF and requires a multidisciplinary approach to care, provided by professional PTs, OTs, STs, rehabilitation nurses, and may require STs, dieticians, and RTS. This is not available in lesser levels of care. Therapy: The patient is to receive therapy at least [address] Treatment Plan: Cognitive Linguistic Tx ST Treatment Plan Duration: Two Weeks ST Treatment Plan Frequency: Three Times Per Week Plan of Care Comment: Physical therapy: 75 minutes 3 days weekly, 90 minutes 2 days weekly. Occupational therapy: 75 minutes 3 days weekly, 90 minutes 2 days weekly. Speech therapy: 30 minutes 3 days weekly - Anticipated LOS/Outcomes Anticipated Functional Outcome: Expected functional improvements include: -- Modified independant to independant ambulation with or without assistive device -- Modified independant to independant ADL's with or without assistive device -- Return to pre-morbid level of mobility -- Maximize level of mobility and ADL's to decrease burden on any caregiver involved with this patient's care It is expected that the patient's delirium/visual hallucinations will resolve. Anticipated Length of Stay (days): 7 Anticipated DC Destination: Home Health Service Home Safety Plan: The patient will be provided with the development of a Home Safety Plan for return to a home or home-like environment and and to ensure safety post discharge. - Plan to Avoid Complications Barriers to Attaining Goals: Weakness, Balance, Comprehension Plan to Avoid Complications: The patient cannot receive this care in a lesser intensive setting such as [facility] or Outpatient Therapy due to the patient requiring the following : This patient requires 24 rehabilitation nursing monitoring of her neurologic status because of her risk of additional neurologic events. She has displayed reduced cognition and has left visual field deficit. She requires close monitoring because of these issues. In addition she has hyperglycemia and requires monitoring of her blood sugars. She has displayed evidence of visual hallucinations which may be a threat to her safety and requires 24 rehabilitation nursing monitoring of these. Finally, she requires a multidisciplinary approach in view of these medical problems along with medical supervision.
[2017-10-01] MEDS ORDERED: FALL RISK - PHARMACY CONSULT XX ONE (16:22)
[2017-10-01] MEDS: ATORVASTATIN 40 MG TABLET PO SCH (20:08)
[2017-10-01] MEDS: CYCLOBENZAPRINE 10 MG TABLET PO SCH (20:08)
[2017-10-01] MEDS: ENOXAPARIN 40 MG/0.4 ML INJECTION SQ SCH (20:09)
[2017-10-02] MEDS: PANTOPRAZOLE 20 MG TABLET PO SCH (06:02)
[2017-10-02] MEDS: CALCIUM CARBONATE 500 MG TABLET PO SCH ×2 (08:30→21:55)
[2017-10-02] MEDS: TRIAMTERENE/HCTZ 37.5 MG-25 MG TABLET PO SCH (08:30)
[2017-10-02] MEDS: CLOPIDOGREL 75 MG TABLET PO SCH (08:30)
[2017-10-02] MEDS: ASPIRIN 81 MG CHEWABLE TABLET PO SCH (08:30)
[2017-10-02] MEDS: CETIRIZINE 10 MG TABLET PO SCH (08:31)
--- NOTE | 2017-10-02 14:44 | Progress Note ---
- Date 10/02/17 Subjective: Tess was resting in bed but wide awake. She was pleasant and had no complaints. She states her visual deficits have resolved. She denies weakness or paresthesias. She states that she has poor balance but quickly states that she always has had poor balance. No chest pain or dyspnea. She denies abdominal pain or GI complaints. Her appetite has been stable. She is ready to go home. Objective Vital signs: Temperature 97.8 F 10/02/17 08:00 Pulse Rate 103 H 10/02/17 08:00 Respiratory Rate 16 10/02/17 08:00 Blood Pressure 132/85 10/02/17 08:00 Pulse Oximetry 102 H 10/02/17 08:00 Rhythm: Sinus Tachycardia Height/Weight/BMI: Height 1.64 m Weight 89.2 kg Body Mass Index 33.2 - Constitutional Present: no acute distress, well nourished, well developed, obese - Routine HEENT Exam Head: Present: normocephalic Eye: Present: PERRL. Absent: conjunctival icterus, scleral injection - Routine Respiratory Exam Present: CTA bilaterally - Routine Cardiovascular Exam Present: RRR, S1, S2, murmur - Routine Abdominal Exam Present: soft, normoactive bowel sounds, non distended, non tender - Routine Extremities Exam Present: no edema - Routine Skin Exam Present: intact, dry, warm - Routine Neurological Exam Present: alert, oriented X3, moving all extremities - Routine Psychiatric Exam Present: normal affect, normal thought process, cooperative Results - Labs CBC & Chem 7: 09/30/17 04:55 09/30/17 04:56 Assessment and Plan (1) CVA (cerebral vascular accident) Current visit: Yes Status: Acute Assessment and Plan: Impression Acute CVA- 09/24/17 Received TPA Left eye blurriness Sinus tach Aortic valve calcification/stenosis and mitral stenosis HTN Hypercholesterolemia GERD Hx Breast Cancer Plan Sinus tach yesterday as high in the 150s - Dr. Mcgraw notified - he saw her while at [facility]. We may consider consulting him on Wednesday. Obtain EKG for baseline. Labs on admission were unremarkable. BGM under good control and she is not on any medications for DM2 -- DC accuchecks. Continue on ASA, Plavix, and Lipitor DVT Prophylaxis: SCD's GI Prophylaxis: Protonix Resuscitation Status: Do Not Resuscitate - Physician Narrative Physician: Danielle Cancino MD Narrative: Date: 10/02/17 Time: 1441 I have discussed the patient with Brea JOSE, I have reviewed prior notes, imaging and labs. I agree with the above assessment and plan. Hospital Course Summary Disclaimer: The visit summary below is not to be considered part of the above Progress Note. Hospital Course: Impression Acute CVA- 09/24/17 Received TPA Left eye blurriness Aortic valve calcification HTN Hypercholesterolemia GERD Hx Breast Cancer Plan Agree with admission to IRU under the care of Dr. Claire for ongoing therapy and strengthening. Patient is quite emotional during examination and reports that she is frustrated with the acute events. It is her hope to return home independently with her . Discussed potential depression and offered initiation of anti-depression medication if needed. Monitor blood pressure, continue on Maxide and Lopressor Protonix chronically for GI protection. Given history of GERD and gastritis Continue on ASA ,Plavix, and Lipitor given recent CVA Urged patient to utilize her routine glasses. She does complain of some left eye blurriness, however, has not been using her normal bifocals. Lovenox SQ daily for PPX Will need to monitor patient for any worsening signs of depression or anxiety. Patient may benefit from initiation of an antidepressant medication given significant life change. Seroquel is available as needed. Will follow routine labs. Encourage work with PT and OT for ongoing strengthening Hospitalist service will continue to follow patient medically manage her existing comorbidities during her stay in the rehabilitation unit. At time of discharge her medical care will return to primary care provider, Dr. Isidro 10/02 Sinus tach yesterday as high in the 150s - Dr. Mcgraw notified - he saw her while at [facility]. We may consider consulting him on Wednesday. Obtain EKG for baseline. Labs on admission were unremarkable. BGM under good control and she is not on any medications for DM2 -- DC accuchecks.
[2017-10-02] MEDS: CYCLOBENZAPRINE 10 MG TABLET PO SCH (21:55)
[2017-10-02] MEDS: ATORVASTATIN 40 MG TABLET PO SCH (21:55)
[2017-10-02] MEDS: ENOXAPARIN 40 MG/0.4 ML INJECTION SQ SCH (22:00)
[2017-10-03] MEDS: ACETAMINOPHEN 325 MG TABLET PO PRN (05:35)
[2017-10-03] MEDS: PANTOPRAZOLE 20 MG TABLET PO SCH (05:35)
[2017-10-03] MEDS: CALCIUM CARBONATE 500 MG TABLET PO SCH ×2 (08:57→20:12)
[2017-10-03] MEDS: CETIRIZINE 10 MG TABLET PO SCH (08:57)
[2017-10-03] MEDS: TRIAMTERENE/HCTZ 37.5 MG-25 MG TABLET PO SCH (08:58)
[2017-10-03] MEDS: CLOPIDOGREL 75 MG TABLET PO SCH (08:58)
[2017-10-03] MEDS: ASPIRIN 81 MG CHEWABLE TABLET PO SCH (08:59)
[2017-10-03] MEDS: ATORVASTATIN 40 MG TABLET PO SCH (20:13)
[2017-10-03] MEDS: ENOXAPARIN 40 MG/0.4 ML INJECTION SQ SCH (20:13)
[2017-10-03] MEDS: CYCLOBENZAPRINE 10 MG TABLET PO SCH (20:13)
[2017-10-04] MEDS: PANTOPRAZOLE 20 MG TABLET PO SCH ×2 (04:51→07:58)
[2017-10-04] MEDS: ACETAMINOPHEN 325 MG TABLET PO PRN (06:09)
[2017-10-04] MEDS: CETIRIZINE 10 MG TABLET PO SCH (08:38)
[2017-10-04] MEDS: ASPIRIN 81 MG CHEWABLE TABLET PO SCH (08:38)
[2017-10-04] MEDS: CLOPIDOGREL 75 MG TABLET PO SCH (08:39)
[2017-10-04] MEDS: CALCIUM CARBONATE 500 MG TABLET PO SCH ×2 (08:39→21:20)
[2017-10-04] MEDS: TRIAMTERENE/HCTZ 37.5 MG-25 MG TABLET PO SCH (08:39)
--- NOTE | 2017-10-04 10:34 | IRU Progress Note ---
- Subjective/Serverity of Illness Date: 10/04/17 Tess was evaluated in her room on acute inpatient rehabilitation. She says that she is tired of being here and would like to be home. She lives with her at home, whom she states can help take care of her. She is improving with therapy. She complains of some dysuria. She says she has a history of UTIs. A urinalysis will be obtained. She denies any chest pain or shortness of breath. No reports of any further visual hallucinations. She is eating and drinking adequately she states. She is having bowel movements. Brief therapy update: Toileting has improved from standby assist to independent. Toilet transfer assist has improved from standby assist to modified independent. For physical therapy, bedside chair/wheelchair transfers are standby assist. She is able to ambulate 140 feet with a front-wheeled walker with standby assist. Update on medical issues we are actively monitoring and/or managin. Acute CVAs involving left centrum semiovale and possible ischemia to left posterior cerebellar hemisphere: At the present time there is no evidence of significant unilateral weakness that I can determine. Memory seems to be an issue. 2. Hyperglycemia: Blood sugars are reasonably well controlled. She does not have a history of diabetes. We will discontinue blood sugar monitoring. 3. Hypertension: Blood pressures are reviewed and are stable. 4. Valvular heart disease characterized by moderate to severe aortic stenosis, moderate mitral stenosis with regurgitation but normal ejection fraction: Continues to be asymptomatic. 5. Possible visual hallucinations: At the present time she does not report further visual hallucinations.. Exam Vital Signs: Temperature 97.3 F 10/04/17 07:38 Pulse Rate 80 10/04/17 08:00 Respiratory Rate 16 10/04/17 07:38 Blood Pressure 148/93 H 10/04/17 07:38 Pulse Oximetry 94 10/04/17 07:38 Height/Weight/BMI: Height 1.64 m Weight 89.2 kg Body Mass Index 33.2 - Constitutional Present: no acute distress, well nourished, well developed, obese, cooperative - Routine HEENT Exam Head: Present: normocephalic, atraumatic Eye: Present: EOMI ENT: Present: mucous membranes moist, oropharynx clear - Routine Neck Exam Present: supple - Routine Respiratory Exam Present: CTA bilaterally. Absent: wheezes - Routine Cardiovascular Exam Present: RRR, S1, S2, murmur. Absent: S3, S4 - Routine Abdominal Exam Present: soft, normoactive bowel sounds, non distended. Absent: tenderness - Routine Extremities Exam Present: no edema, normal capillary refill - Routine Back/Spine/Pelvis Exam Back/Spine: Present: full ROM - Routine Skin Exam Present: dry, warm - Routine Neurological Exam Present: alert, oriented X3, CN II-XII intact Fine motor movement appears to be normal bilaterally in the upper extremities. Strength appears to be adequate bilaterally as well. No facial droop. - Routine Psychiatric Exam Present: normal affect Results IRU - Labs Labs: Have reviewed sugars and other labs IRU A/P (1) CVA (cerebral vascular accident) Qualifiers: CVA mechanism: embolism Precerebral and cerebral artery: middle cerebral artery Laterality of affected vessel: left Qualified Code(s): I63.412 - Cerebral infarction due to embolism of left middle cerebral artery Current visit: Yes Status: Acute She is improving with regard to functional capability. Memory may be an issue. She would like to go home. (2) Hypertension Qualifiers: Hypertension type: essential hypertension Qualified Code(s): I10 - Essential (primary) hypertension Current visit: Yes Status: Chronic Blood pressures are controlled overall. (3) Mitral stenosis Qualifiers: Cardiac valve disease etiology: etiology unspecified Qualified Code(s): I05.0 - Rheumatic mitral stenosis Current visit: Yes Status: Chronic (4) Aortic stenosis Qualifiers: Cardiac valve disease etiology: etiology unspecified Qualified Code(s): I35.0 - Nonrheumatic aortic (valve) stenosis Current visit: Yes Status: Chronic (5) Visual hallucinations Current visit: Yes Status: Acute (6) Dysuria Current visit: No Status: Acute Complains of new onset of dysuria and a urinalysis will be obtained. DVT Prophylaxis: SCD's Resuscitation Status: Do Not Resuscitate - Course Hospital Course: Ubaldo Claire MD: 10/01/17 10:35 Medically stable. Memory/cognition is an issue. Visual hallucinations noted as recently as yesterday. Getting settling into rehabilitation routine. 10/04/17 10:36 Progressing with therapy. We will check a UA because of dysuria. - Interventions to Obtain Goals PT Treatment Plan: Balance/Proprioception, Functional Activities, Gait Training , Patient/Family Education, Therapeutic Exercise OT Treatment Plan: ADL (Basic Care), Balance Training, IADL, Pt./Family Education, Ther. Exercise for ADL Goals Progress/Modifications: Time spent with patient and on floor reviewing data and documentin min Medical decision-making: Neurologically she seems to be stable at the present time. She would like to go home. Still has some functional deficits that we are working on however. Denies any chest pain or shortness of breath. Does complain of dysuria. We will obtain a urinalysis. Continue to work with therapy. Blood sugars are reviewed and overall look good. We will discontinue blood glucose monitoring.
--- NOTE | 2017-10-04 13:52 | IRU Team Meeting ---
IRU Team Meeting - Nursing Bladder Assistive Devices Utilized:: Absorbent Pad Bladder Management Level of Assist: Independent Bladder Frequency of Accidents: No accidents Bowel Assistive Devices Utilized:: Medication Bowel Management Level of Assist: Independent Bowel Frequency of Accidents: No accidents Vital Signs: Vital Signs - 24 hr 10/03/17 15:43 10/03/17 16:00 10/03/17 20:02 Temperature 97.5 F 97.6 F Pulse Rate 92 99 92 Respiratory Rate 16 20 Blood Pressure 130/78 125/76 Pulse Oximetry 96 93 10/04/17 07:38 10/04/17 08:00 Temperature 97.3 F Pulse Rate 89 80 Respiratory Rate 16 Blood Pressure 148/93 H Pulse Oximetry 94 Current Medications: Acetaminophen (Tylenol) 650 mg PO Q6H PRN PRN Reason: Pain Last Admin: 10/04/17 06:09 Dose: 650 mg Aspirin (Asa) 81 mg PO DAILY [facility] Last Admin: 10/04/17 08:38 Dose: 81 mg Atorvastatin Calcium (Lipitor) [address] [facility] Last Admin: 10/03/17 20:13 Dose: 40 mg Calcium Carbonate (Calcium) 500 mg PO DAILY [facility] Last Admin: 10/04/17 08:39 Dose: 500 mg Calcium Carbonate (Calcium) 1,[address] [facility] Last Admin: 10/03/17 20:12 Dose: 1,000 mg Cetirizine HCl (Zyrtec) 10 mg PO DAILY [facility] Last Admin: 10/04/17 08:38 Dose: 10 mg Clopidogrel Bisulfate (Plavix) 75 mg PO DAILY [facility] Stop: 10/26/17 08:59 Last Admin: 10/04/17 08:39 Dose: 75 mg Cyclobenzaprine HCl (Flexeril) [address] [facility] Last Admin: 10/03/17 20:13 Dose: 10 mg Enoxaparin Sodium (Lovenox) 40 mg SQ HS [facility] Last Admin: 10/03/17 20:13 Dose: 40 mg Guaifenesin (Mucinex) 200 mg PO Q6H PRN PRN Reason: Cough Last Admin: 09/29/17 21:16 Dose: 200 mg Metoprolol Tartrate (Lopressor) 25 mg PO BIDBS [facility] Last Admin: 10/04/17 08:38 Dose: 25 mg Pantoprazole Sodium (Protonix) 20 mg PO ACB [facility] Last Admin: 10/04/17 07:58 Dose: Not Given Quetiapine Fumarate (Seroquel) 12.5 mg PO Q6HR PRN PRN Reason: Delerium Triamterene/HCTZ (Maxzide-25 Eqv) 1 tab PO DAILY [facility] Last Admin: 10/04/17 08:39 Dose: 1 tab Current Medical Issues: Recent CVA, valvular heart disease, hypertension Comments: I certify that I personally led the interdisciplinary team meeting and agree with comments, barriers and goals indicated. Team meeting was held in the patient's room with the patient and the following family members present: patient's Ms. Ramesh has developed some dysuria and a urinalysis was obtained indicating the presence of a UTI. Calcium was started as well as prefer home medications. Has not complained of discomfort. Patient does have visual changes involving her left field of vision. - Speech Therapy Patient was evaluated by speech therapy. Cognitive evaluation was completed and she was felt to be within functional limits. Did not display any evidence of aphasia nor dysarthria. - Physical Therapy Bed, Chair, Wheelchair Transfer Assist: Modified Independent Ambulation Ability: Modified Independent Ambulation Distance: 250 Stair Climbing Ability: Stand By Assist/Supervision Number of Steps Climbed: 12 Car Transfer Ability: Stand By Assist/Supervision Comments: Patient has met most of her physical therapy goals and is functioning well. Continues to have a mild balance deficit however she is felt to be safe. She is able to ambulate 250 feet with a cane. - Occupational Therapy Eating Ability: Independent Grooming Ability: Modified Independent Bathing Ability: Modified Independent Upper Body Dressing Ability: Independent Lower Body Dressing Ability: Modified Independent Tub Transfer Assist: Modified Independent Toileting Assist: Modified Independent Toilet Transfer Assist: Modified Independent Comments: She is very pleasant and cooperative with occupational therapy. She has met most of her goals except modified independent for grooming, lower extremity dressing tasks and toileting. She does have good safety awareness and is displaying good strength. Anticipate safe transition to her home. - Goals Physical Therapy Goals: 10/04/17 Goals: 1.) Discharge Planning Occupational Therapy Goals: OT goals 10/04/17: 1.) Laundry tasks w/ mod I. 2.) Toileting independently. 3.) Discharge planning. - Barriers to Discharge Barriers to Attaining Goals: Balance (she is undergoing balance training and reinforcement.) - Care Plan Anticipated Length of Stay (days): 1 Anticipated DC Destination: Home, Self Care, Home Health Service I have led this team conference and agree with the plan.
[2017-10-04] MEDS: ATORVASTATIN 40 MG TABLET PO SCH (21:20)
[2017-10-04] MEDS: CYCLOBENZAPRINE 10 MG TABLET PO SCH (21:21)
[2017-10-04] MEDS: ENOXAPARIN 40 MG/0.4 ML INJECTION SQ SCH (21:21)
[2017-10-05] MEDS: SALINE FLUSH 10ml SYRINGE IV PRN ×2 (03:19→08:39)
[2017-10-05] MEDS: PANTOPRAZOLE 20 MG TABLET PO SCH (06:23)
[2017-10-05 07:47] VITALS: BP 145/86; PULSE 95; RESP 18; TEMP 97.4; O2SAT 94
[2017-10-05] MEDS: ASPIRIN 81 MG CHEWABLE TABLET PO SCH (08:37)
[2017-10-05] MEDS: TRIAMTERENE/HCTZ 37.5 MG-25 MG TABLET PO SCH (08:37)
[2017-10-05] MEDS: CALCIUM CARBONATE 500 MG TABLET PO SCH (08:37)
[2017-10-05] MEDS: CLOPIDOGREL 75 MG TABLET PO SCH (08:37)
[2017-10-05] MEDS: CETIRIZINE 10 MG TABLET PO SCH (08:37)
--- NOTE | 2017-10-05 14:13 | IRU Progress Note ---
- Subjective/Serverity of Illness Date: 10/05/17 Tess was evaluated in her room on inpatient rehabilitation with her present. She reports that she feels very safe going home. She denies any weakness at all in either lower or upper extremity. Her speech is fluent. She appears to have good comprehension. She denies any chest pain or shortness of breath. Exam Vital Signs: Temperature 97.4 F 10/05/17 07:46 Pulse Rate 95 10/05/17 07:46 Respiratory Rate 18 10/05/17 07:46 Blood Pressure 145/86 H 10/05/17 07:46 Pulse Oximetry 94 10/05/17 07:46 Height/Weight/BMI: Height 1.64 m Weight 89.2 kg Body Mass Index 33.2 - Constitutional Present: no acute distress, well nourished, well developed, obese - Routine HEENT Exam Head: Present: normocephalic, atraumatic Eye: Present: EOMI, PERRL Comments: No discernible facial droop can be seen. - Routine Neck Exam Present: supple - Routine Respiratory Exam Present: CTA bilaterally. Absent: respiratory distress, wheezes, crackles - Routine Cardiovascular Exam Present: RRR, S1, S2, murmur - Routine Abdominal Exam Present: soft, non distended, non tender - Routine Extremities Exam Present: no edema - Routine Skin Exam Present: dry, warm - Routine Neurological Exam Present: alert, oriented X3, CN II-XII intact. Absent: motor deficit She has good strength bilaterally in the upper and lower extremities. Fine motor movement appears to be normal. Her speech is fluent. I do not detect any facial droop at present. - Routine Psychiatric Exam Present: normal affect, normal thought process, cooperative, good insight, good judgment IRU A/P (1) CVA (cerebral vascular accident) Qualifiers: CVA mechanism: embolism Precerebral and cerebral artery: middle cerebral artery Laterality of affected vessel: left Qualified Code(s): I63.412 - Cerebral infarction due to embolism of left middle cerebral artery Current visit: Yes Status: Acute She is stable from a neurologic standpoint. (2) Hypertension Qualifiers: Hypertension type: essential hypertension Qualified Code(s): I10 - Essential (primary) hypertension Current visit: Yes Status: Chronic (3) Mitral stenosis Qualifiers: Cardiac valve disease etiology: etiology unspecified Qualified Code(s): I05.0 - Rheumatic mitral stenosis Current visit: Yes Status: Chronic (4) Aortic stenosis Qualifiers: Cardiac valve disease etiology: etiology unspecified Qualified Code(s): I35.0 - Nonrheumatic aortic (valve) stenosis Current visit: Yes Status: Chronic (5) Visual hallucinations Current visit: Yes Status: Acute (6) Dysuria Current visit: No Status: Acute DVT Prophylaxis: SCD's Resuscitation Status: Do Not Resuscitate - Course Hospital Course: Ubaldo Claire MD: 10/01/17 10:35 Medically stable. Memory/cognition is an issue. Visual hallucinations noted as recently as yesterday. Getting settling into rehabilitation routine. 10/04/17 10:36 Progressing with therapy. We will check a UA because of dysuria. 10/05/17 14:12 She remains medically stable. Neurologically she is intact. Plans to go home today. - Interventions to Obtain Goals PT Treatment Plan: Balance/Proprioception, Functional Activities, Gait Training , Patient/Family Education, Therapeutic Exercise OT Treatment Plan: ADL (Basic Care), Balance Training, IADL, Pt./Family Education, Ther. Exercise for ADL Goals Progress/Modifications: Patient is dismissed today. She will follow-up with Dr. Donovan as well as Dr. Mcgraw.
--- NOTE | 2017-10-05 14:25 | Discharge Summary ---
Discharge Information Date of admission: 09/29/17 16:13 Anticipated date of discharge: 10/05/17 Attending Physician: Ubaldo Claire MD Primary care physician: Kalpana Isidro DO Consults: 09/29/17 17:58 Physician Consult [CONS] Routine Consulting Provider: Adrian Herbert Reason For Exam: medical management Ordering Provider has Notified Die Inspector: No - Discharge Diagnosis (1) CVA (cerebral vascular accident) Status: Acute (2) Hypertension Status: Chronic (3) Mitral stenosis Status: Chronic (4) Aortic stenosis Status: Chronic (5) Visual hallucinations Status: Acute (6) Dysuria Status: Acute 1. Cerebrovascular accident 2. Benign essential hypertension 3. Aortic stenosis, moderate to severe 4. Mitral stenosis 5. Urinary tract infection - Laboratory Labs: 09/30/17 04:55 09/30/17 04:56 - Microbiology Microbiology 10/04/17 11:53 Urine, Voided (Cc/notcc) Urine Culture - Preliminary Culture Initiated - Results Pending History of Present Illness HPI: Ms. Ramesh is a 77-year-old female who developed symptoms of a stroke characterized by not speaking correctly and ultimately left-sided facial droop and left leg weakness on September 24, 2017. EMS was called. Initial blood pressure by EMS was 200/107. She was transported to [facility]. At the time of her arrival the left-sided facial droop had improved. Despite that she continued to have significant confusion which was new for her and for this reason TPA was given. CT angiogram of both head and neck were negative for retrievable clot. MRI done the next morning on 09/25/2017 demonstrated a small focus of acute ischemia in the left centrum semi-ovale and a possible small focus of acute ischemia in the left posterior cerebellar hemisphere. Transthoracic echo was done demonstrating normal ejection fraction but with presence of moderate to severe aortic stenosis and mitral stenosis which was moderate along with regurgitation of the mitral valve. She was seen by Dr. Jaya Mcgraw in [place] who recommended a DAISY as well as subsequently a loop recorder. TE was performed on September 29 in [place] and was negative for left atrial aneurysm. The patient developed significant functional deficits and for this reason it was felt that acute inpatient rehabilitation would be appropriate for the patient. Specifically the patient required moderate assistance for bed/chair/ wheelchair transfers, moderate assistance for bathing and lower body dressing. She could ambulate 40 feet with a rolling walker with total assistance. She did demonstrate loss of balance with gait. There was question of linguistic/ cognitive deficits. Hospital Course This is a general summary of the patient's hospital course. For more details refer to the complete medical record. She was admitted to acute inpatient rehabilitation and followed by Dr. Claire as well as the hospitalist service. Patient's blood pressure was monitored and was felt to be stable. She did develop symptoms of a urinary tract infection on October 04 and was started on an antibiotic. Patient was seen by speech therapy. Cognitive linguistic testing was completed, demonstrating that her cognitive skills were within functional limits. Spatial orientation skills were in the moderate deficit range however the 2 questions that were in error related to East/West directions in which her explaining that was baseline for her. Her problem solving auditory processing skills were within functional limits as well as recent and remote memory. For occupational therapy the patient was independent eating upon admission and dismissal. Grooming ability was initially standby assist and ultimately modified independent. Bathing was standby assist and ultimately modified independent. Upper body dressing was initially modified independent and ultimately independent. Lower body dressing and toilet assist were initially standby assist and Ultram only modified independent. Bed/chair/wheelchair transfers were performed at a modified independent manner at the time of dismissal. Physical therapy, but/chair/wheelchair transfers were initially standby assist and ultimately standby assist as well. Car transfers were able to be performed by standby assistance. She was initially able to ambulate 169 feet with a straight cane and standby assistance. She was able to also only ambulate over 300 feet with standby assistance. She did have a few elevated blood sugars in [place]. For that reason her blood sugars were monitored here and remained essentially within normal limits. Fasting sugars were 123, 113, 114, 102. There was one value at 160 around 8 PM after eating the evening meal. She does not have a diagnosis of diabetes. The patient had good safety awareness. She was felt to be stable to return to her home and was dismissed on October 05, 2017. Follow-up will be with Dr. Mcgraw who plans to place a loop recorder to rule out atrial fibrillation. While she was on acute inpatient rehabilitation she was monitored with telemetry and remained in sinus mechanism. Hospital course: Impression Acute CVA- 09/24/17 Received TPA Left eye blurriness Aortic valve calcification HTN Hypercholesterolemia GERD Hx Breast Cancer Plan Agree with admission to IRU under the care of Dr. Claire for ongoing therapy and strengthening. Patient is quite emotional during examination and reports that she is frustrated with the acute events. It is her hope to return home independently with her . Discussed potential depression and offered initiation of anti-depression medication if needed. Monitor blood pressure, continue on Maxide and Lopressor Protonix chronically for GI protection. Given history of GERD and gastritis Continue on ASA ,Plavix, and Lipitor given recent CVA Urged patient to utilize her routine glasses. She does complain of some left eye blurriness, however, has not been using her normal bifocals. Lovenox SQ daily for PPX Will need to monitor patient for any worsening signs of depression or anxiety. Patient may benefit from initiation of an antidepressant medication given significant life change. Seroquel is available as needed. Will follow routine labs. Encourage work with PT and OT for ongoing strengthening Hospitalist service will continue to follow patient medically manage her existing comorbidities during her stay in the rehabilitation unit. At time of discharge her medical care will return to primary care provider, Dr. Isidro 10/02 Sinus tach yesterday as high in the 150s - Dr. Mcgraw notified - he saw her while at [facility]. We may consider consulting him on Wednesday. Obtain EKG for baseline. Labs on admission were unremarkable. BGM under good control and she is not on any medications for DM2 -- DC accuchecks. Time spent with patient: greater than 35 minutes Resuscitation Status: Do Not Resuscitate Discharge Plan - Med Rec/Dispo Referrals/Follow Up: Kalpana Isidro DO [Family Provider] - (Dr. Thomas Isidro on 10/11/17 at 1:00 pm [facility] [id number] [place] Instructions: Clopidogrel (By mouth), Fall Prevention for Older Adults ( GEN), Self Care Measures After a Stroke (GEN) Prescriptions: New Calcium Carbonate [Calcium] 500 mg PO DAILY tab Calcium Carbonate [Calcium] 1,000 mg PO HS tab CephALEXin [Keflex 500 mg] 500 mg PO Q6HR #24 cap Continue Acetaminophen [Tylenol] 650 mg PO PRN PRN PRN Reason: Pain Magnesium Oxide [Magox] 400 mg PO TID Cetirizine [Zyrtec] 1 tab PO DAILY Clopidogrel [Plavix] 1 tab PO DAILY #30 tab Triamterene/Hydrochlorothiazid [Maxzide 37.5 mg-25 mg Tablet] 1 each PO DAILY 30 Days #30 tab Aspirin Chewable [ASA] 81 mg PO DAILY Lopressor (metoprolol tartrate) 50 mg tablet 25 mg PO BID Nexium (Esomeprazole) 20 mg capsule,delayed release 20 mg PO ACB cap Lipitor (atorvastatin) 40 mg tablet 40 mg PO HS tab Discontinued Quetiapine [Seroquel] 12.5 mg PO Q6HR PRN PRN Reason: Delerium Enoxaparin [Lovenox] 40 mg SQ Q24HR Guaifenesin [Mucinex] 200 mg PO Q6HPRN PRN PRN Reason: Cough No Action Cyclobenzaprine [Flexeril] 1 tab PO HS - Disposition 01 Discharged Home, Self-Care - Dismissal Complete Discharge Instructions are:: Complete
--- NOTE | 2017-10-05 14:32 | Letter to Referring Physician ---
Dear Dr. Isidro, This is a brief note to bring you up-to-date on the status of Tess Ramesh and her stay on the acute inpatient rehabilitation unit at [facility]. As you are likely aware, this patient was admitted to [facility] on 09/24/17 for an acute CVA. She received TPA upon admission and was also seen by Dr. Jaya Mcgraw for valvular heart disease and stroke evaluation. The patient was stabilized while on the acute level and admitted to inpatient rehabilitation unit at [facility] on September 29, 2017. While on inpatient rehabilitation, this patient was seen by occupational therapy and physical therapy and improved overall in their functional ability. Please see a copy of the history and physical examination as well as discharge summary enclosed with this letter for further details. She will need a loop recorder placed by Dr. Mcgraw as an outpatient to rule out atrial fib. She was on telemetry here and no dysrhythmia's were identified. Thank you for allowing us to be involved in this nice patient's care. Please contact me directly should you have any questions regarding their stay on the inpatient rehabilitation unit. Sincerely, Ubaldo Claire M.D.
== END 2017-10-05 13:50 | disposition home or self-care (01) | DRG 57 ==
PROVIDERS: ADMIT Internal Medicine; ATTEND Internal Medicine